=== PATIENT | male | born 2000 | race Caucasian/White ===

== ENCOUNTER 2025-08-28 11:01 | Emergency (ER) | payer BC, SELFPAY ==
[2025-08-28 11:08] VITALS: BP 126/72; PULSE 76; O2SAT 100; BMI 24.4
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
[2025-08-28] MEDS: ORPHENADRINE 60 MG/2 ML VIAL IM (11:35)
[2025-08-28] MEDS: KETOROLAC TROMETHAMINE 30 MG/ML VIAL IM (11:35)
--- OUTSIDE RECORDS SUMMARY | 2025-08-28 11:55 | XMS_ITS | Clinical Summary ---
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 Role Phone Brenna Powell MD Primary Care Provider [phone] Social History Tobacco UseTypesPacks/DayYears UsedDateSmoking Tobacco: Never AssessedSex and Gender InformationValueDate RecordedSex Assigned at BirthNot on fileLegal Sex Male12/27/2022 6:37 PM EDTGender IdentityNot on fileSexual OrientationNot on file Plan of Treatment Health MaintenanceDue DateLast DoneCommentsCOVID-19 Vaccine ( season) 2025Influenza Vaccine (#1)2025Pneumococcal Vaccine: Pediatrics (0 to 5 Years) and At-Risk Patients (6 to 64 Years)Aged OutNo longer eligible based on patient's age to complete this topic Insurance Care Teams Team MemberRelationshipSpecialtyStart DateEnd Date Brenna Powell MD [address] [address] [facility]
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
== END 2025-08-28 12:55 | disposition home or self-care (01) ==
PROVIDERS: Emergency Provider Emergency Medicine; PCP Family Medicine
DX: R07.89 Other chest pain (principal)
CPT/HCPCS: 71101; 96372; 99284; J1885; J2360